=== PATIENT | female | born 1940 | race Caucasian/White ===

== ENCOUNTER 2016-03-28 16:59 | Inpatient (IN) | payer MEDICARE ==
--- NOTE | 2016-03-28 17:47 | DIRPT ---
CLINICAL DATA: 75-year-old female with history of dyspnea and shortness of breath for the past 4 weeks. History of multiple myeloma. EXAM: CHEST 2 VIEW COMPARISON: Chest x-ray 01/23/2016. FINDINGS: Extensive emphysematous changes are again noted throughout the lungs bilaterally. Scattered areas of architectural distortion are noted throughout the lungs bilaterally, presumably areas of chronic post infectious or inflammatory scarring. Increasing nodularity in the left upper lobe. Small left and moderate right pleural effusions. No definite evidence of pulmonary edema. No pneumothorax. Heart size is borderline enlarged. Upper mediastinal contours are within normal limits. Atherosclerosis in the thoracic aorta. IMPRESSION: 1. Increasing nodularity in the left upper lobe. See separate dictation for chest CT from earlier today for full description and follow-up recommendations. 2. Moderate right and small left pleural effusions. 3. Atherosclerosis. Electronically Signed By: Jori Mcgee M.D. On: 03/28/2016 17:44
[2016-03-28 18:05] LABS: AUTOMATED BASOPHIL 1.6 % (0-2); AUTOMATED MONOCYTE 15.8 % (3-10); AUTOMATED NEUTROPHIL 62.6 % (45-76); MPV 9.8 fL (7.4-10.4)
[2016-03-28 18:21] LABS: PARTIAL THROMB. TIME 28.5 SEC (22-35); PT-INR 1.2
[2016-03-28 18:25] LABS: ABG Draw Site Right Radial; ALLEN'S TEST PASS; TCO2 26.3 MMOL/L (23-27)
--- NOTE | 2016-03-28 18:29 | EDPRACDOC ---
- General Information Chief Complaint: Dyspnea/Resp distress Stated Complaint: SENT FROM DR GOMEZ, CHF Time Seen by Provider: 03/28/16 18:11 Information Source: Patient Mode Of Arrival: Car Home Medications: Home Medications Omeprazole [Prilosec] 20 mg PO DAILY 09/02/13 Pravastatin Sodium 10 mg PO DAILY 09/02/13 Cyanocobalamin (Vitamin B-12) [Vitamin B-12] 1,000 mcg PO DAILY 06/09/15 Aspirin (Enteric Coated) [Halfprin] 121.5 mg PO DAILY 07/30/15 Ca/D3/Mag#11/Zinc/Assembly Worker/Ciprinao/Bor [Caltrate 600+D Plus Tablet] 2 tab PO DAILY 07/29 Losartan Potassium 100 mg PO DAILY 07/30/15 Lenalidomide [Revlimid] 5 mg PO DAILY 12/22/15 Acyclovir 400 mg PO DAILY 03/28/16 Allergies/Adverse Reactions: Allergies Allergy/AdvReac Type Severity Reaction Status Date / Time NSAIDS (Non-Steroidal AdvReac Severe See Verified 03/28/16 17:23 Anti-Inflamma Comments - History of Present Illness HPI: PT PRESENTS WITH PROGRESSIVE DYSPNEA OVER THE LAST FEW WEEKS. SEEN BY PCP AND ONCOLOGY WITH CT OF CHEST TODAY WHICH SHOWED NEW BILATERAL PLEURAL EFFUSION AND POSSIBLE CHF. SENT FROM PCP'S OFFICE FOR EVALUATION. Shortness of Breath: Moderate Associated Signs and symptoms: Denies: Cough, Fever, Nasal Symptoms, Vomiting ED Past Medical History - History Reviewed Yes Nurses notes reviewed and agree except as marked - Patient Medical History Cardiac History: Reports: Hypertension, Congestive Heart Failure, Hypercholesterolemia, Valvular Heart Disease Respiratory History: Reports: COPD, Emphysema. Denies: Pneumonia GI/ History: Reports: Renal Disease (HAS MULTIPLE MYELOMA WHICH CAN CAUSE THIS ), Kidney Stones, Gastroesophageal Reflux. Denies: Urinary Tract Infection Musculoskeletal History: Reports: Arthritis (RA), Rheumatoid Arthritis Psychological History: Reports: Anxiety. Denies: Depression, Substance Use Disorder Systemic History: Reports: Cancer (multiple myeloma, lung, skin), Anemia Surgical History: Reports: Other (Left lower lobectomy, right leg surgery) Date of Last Radiation Treatment: 10 YEARS Date of Last Chemotherapy Date: 02/28/16 - Family Medical History Reports: Hypertension, Diabetes (DTR), Cancer (Multiple malignancies in family members including father and multiple sibs). Denies: Stroke, Cardiac Disorders - Social Medical History Smoking Status: Never smoker Social History: Denies: Substance Use Disorder Lives With: Family Lives In: Home EDM Review of Systems - Review of Systems ROS Negative Except as Marked: Yes All systems reviewed and were negative except as marked Constitutional: Fatigue, Weakness. negative: Fever Respiratory: Shortness of Breath Cardiovascular: negative: Chest Pain Gastrointestinal: negative: Pain, Vomiting - Physical Exam Constitutional: Alert Oriented to: Time, Person, Place Last recorded Vital Signs: Last Vital Signs Temp 97.9 F 03/28/16 17:23 Pulse 90 03/28/16 18:11 Resp 18 03/28/16 18:11 BP 191/95 H 03/28/16 18:11 Pulse Ox 89 L 03/28/16 18:11 Oxygen Pulse Oxygen Saturation 89 O2 Device Room Air Oxygen Flow Rate Fraction of Inspired Oxygen ( FIO2) - HEENT Head: negative: Deformity, Laceration Eye Exam: negative: Conjunctival Injection, Pale Conjunctiva Oropharynx: negative: Membranes Dry Nose: negative: Congestion, Discharge Neck: negative: Limited ROM - Respiratory/Cardiovascular Respiratory: Diminished, Tachypnea. negative: Retractions Cardiovascular: negative: Bradycardia, Tachycardia, Irregular - GI Auscultation: Normal Palpation: Normal Tenderness: Non tender - Musculoskeletal Extremities: Pedal Pulse (PALPABLE), Radial Pulse (PALPABLE). negative: Calf Tenderness, Pedal Edema - Integumentary Skin: Warm, Dry. negative: Rash - Neurologic Memory Impaired: Normal Motor Function: Normal Mood Description: Anxious Thought: Coherent Perception: Normal ED SOB MDM - Results Result Diagrams: 03/28/16 17:40 03/28/16 17:40 Results: WBC 3.2 xk/uL (3.8-10.8) L 03/28/16 17:40 RBC 3.20 xM/uL (4.20-5.40) L 03/28/16 17:40 Hgb 10.2 g/dL (12.0-16.0) L 03/28/16 17:40 Hct 29.9 % (36-47) L 03/28/16 17:40 MCV 93 fL (81-99) 03/28/16 17:40 MCH 31.9 pg (27-32) 03/28/16 17:40 MCHC 34.2 g/dl (33-36) 03/28/16 17:40 RDW 20.8 % (11.5-14.5) H 03/28/16 17:40 Plt Count 57 xk/uL (130-400) L 03/28/16 17:40 MPV 9.8 fL (7.4-10.4) 03/28/16 17:40 Neut % (Auto) 62.6 % (45-76) 03/28/16 17:40 Lymph % (Auto) 14.0 % (17-44) L 03/28/16 17:40 Elbert % (Auto) 15.8 % (3-10) H 03/28/16 17:40 Eos % (Auto) 6.0 % (0-5) H 03/28/16 17:40 Baso % (Auto) 1.6 % (0-2) 03/28/16 17:40 Absolute Neuts (auto) 1.98 xk/uL (1.7-8.2) 03/28/16 17:40 Absolute Lymphs (auto) 0.45 xk/uL (0.65-4.75) L 03/28/16 17:40 Lactic Acid 1.0 mEq/L (0.7-2.1) 03/28/16 17:40 Lab Results 03/28/16 03/28/16 17:40 17:40 WBC 3.2 L RBC 3.20 L Hgb 10.2 L Hct 29.9 L MCV 93 MCH 31.9 MCHC 34.2 RDW 20.8 H Plt Count 57 L MPV 9.8 Neut % (Auto) 62.6 Lymph % (Auto) 14.0 L Elbert % (Auto) 15.8 H Eos % (Auto) 6.0 H Baso % (Auto) 1.6 Absolute Neuts (auto) 1.98 Absolute Lymphs (auto) 0.45 L Lactic Acid 1.0 - EKG EKG #1 EKG Time: 18:00 -: Yes EKG interpreted by me Rate: bpm: 86 Rhythm: NSR, PVCs ST: Nonsp - Departure Yes I personally saw and evaluated the patient. Condition: Stable Final Diagnosis: Hypoxemia requiring supplemental oxygen, Pancytopenia Referrals: Sahil Gomez MD [Primary Care Provider] - One Week
[2016-03-28 19:31] LABS: WBC/URINE TNTC (0-5)
[2016-03-28 19:32] LABS: BLOOD UREA NITROGEN 23 MG/DL (7-17); CALC CORRECTED 8.7 MG/DL (8.4-10.2); CALCIUM 7.7 MG/DL (8.4-10.2); CALCULATED OSMOLALITY 275 MOs/Kg (270-290); CHLORIDE 105 mEq/L (98-107); CPK TOTAL WITH POSSIBLE MB 53 IU/L (30-134); GLUCOSE 100 MG/DL (70-99); SODIUM LEVEL 141 mEq/L (137-146); TOTAL PROTEIN 5.7 G/DL (6.3-8.2)
[2016-03-28 19:37] LABS: LEUKOCYTES/URINE TRACE (NEGATIVE); NITRITE/URINE NEG (NEGATIVE); URINE OCCULT BLOOD 2+ (NEG/TRACE)
[2016-03-28] MEDS ORDERED: CEFTRIAXONE 1 GM in D5W 100 ML IV ONE (19:46)
[2016-03-28] MEDS ORDERED: ONDANSETRON HCL 4 MG/2 ML VIAL IV PRN (20:37)
[2016-03-28] MEDS ORDERED: METOCLOPRAMIDE 10 MG/2 ML VIAL IV PRN (20:37)
[2016-03-28] MEDS ORDERED: SIMETHICONE 80 MG TAB PO PRN (20:37)
[2016-03-28] MEDS ORDERED: BENZONATATE 100 MG PERLES PO PRN (20:37)
[2016-03-28] MEDS ORDERED: ACETAMINOPHEN 650 MG SUPP PR PRN (20:37)
[2016-03-28] MEDS ORDERED: MORPHINE 2 MG/ML INJECTION IV PRN (20:37)
[2016-03-28] MEDS ORDERED: DOCUSATE-SENNA CONCENTRATE TAB PO PRN (20:37)
[2016-03-28] MEDS ORDERED: NITROGLYCERINE 0.4 MG TAB SL PRN (20:37)
[2016-03-28] MEDS ORDERED: Pharmacy Order Set Alert SCH (21:00)
[2016-03-28] MEDS ORDERED: METOPROLOL 5 MG/5 ML SDV IV ONE (21:12)
[2016-03-28] MEDS: FUROSEMIDE 40 MG/4 ML VIAL IV SCH (22:44)
[2016-03-28] MEDS ORDERED: ENOXAPARIN 40 MG/0.4 ML PFS SQ SCH (23:00)
[2016-03-28] MEDS ORDERED: Vaccine Screening Complete SCH (23:00)
--- NOTE | 2016-03-28 23:52 | HISTPHYS ---
- Chief Complaint SHORT OF BREATH - History of Present Illness Renea Shultz is a pleasant elderly woman who suffers with Stage 2 [place] light chain multiple myeloma. She noted that she had increasing shortness of breath and tightness in her chest the past 3-4 days, and complained of increasing cough , nausea, and chest congestion. She saw Dr. Ibarra who felt she needed to be admitted due to her declining condition. She has small bilateral pleural effusions, worsening signs of congestive heart failure, and a urinary tract infection. - Medical History Cardiac History: Reports: Coronary Artery Disease, Hypertension, Congestive Heart Failure, Hypercholesterolemia, Valvular Heart Disease Respiratory History: Reports: COPD, Emphysema. Denies: Pneumonia GI/ History: Reports: Renal Disease (HAS MULTIPLE MYELOMA WHICH CAN CAUSE THIS ), Kidney Stones, Gastroesophageal Reflux. Denies: Urinary Tract Infection Musculoskeletal History: Reports: Arthritis (osteoporosis), Rheumatoid Arthritis Systemic History: Reports: Cancer (multiple myeloma, lung ca(resected), L breast , skin ca), Anemia Neurological History: Reports: No Significant History Psychological History: Reports: Anxiety. Denies: Depression, Alcoholism - Surgical History Reports: Other (L lower lobectomy, R leg surgery(rut inserted), lithotripsy,L Breast lump) - Medictions/Allergies Allergies NSAIDS (Non-Steroidal Anti-Inflamma Adverse Reaction (Severe, Verified 03/28/16 17:23) See Comments Renal failure Home Medications Omeprazole [Prilosec] 20 mg PO DAILY 09/02/13 Pravastatin Sodium 10 mg PO DAILY 09/02/13 Cyanocobalamin (Vitamin B-12) [Vitamin B-12] 1,000 mcg PO DAILY 06/09/15 Aspirin (Enteric Coated) [Halfprin] 121.5 mg PO DAILY 07/30/15 Ca/D3/Mag#11/Zinc/Transit Bus Operator/Cipriano/Bor [Caltrate 600+D Plus Tablet] 2 tab PO DAILY 07/29 Losartan Potassium 100 mg PO DAILY 07/30/15 Lenalidomide [Revlimid] 5 mg PO DAILY 12/22/15 Acyclovir 400 mg PO DAILY 03/28/16 - Family History Reports: Hypertension, Diabetes (DTR), Cancer (Multiple malignancies in family members including father and multiple sibs). Denies: Stroke, Cardiac Disorders - Social History Travel Outside of [place] in the Last 3 Months?: No Smoking Status: Former smoker - Review of Systems Constitutional: Chills, Fatigue, Loss of Appetite, Weakness Eyes: Uses Glasses/Contact lenses Ears: No Symptoms Reported, Hearing Loss Nose: No Symptoms Reported. negative: Bleeding, Congestion, Discharge, Deformity Mouth: No Symptoms Reported Throat/Neck: No Symptoms Reported Respiratory: Cough, Shortness of Breath, Wheezing, Bronchitis, Dyspnea Cardiovascular: Chest Pain, Edema, Orthopnea, Palpitations, PND Gastrointestinal: Nausea, Vomiting, Heartburn Genitourinary: Dysuria, Frequency, Nocturia, Urgency to urinate, Foul Ordor, Postmenopause Neurological: Dizziness, Gait Difficulty, Headache, Weakness Musculoskeletal:: Osteoarthritis, Stiffness, Weakness, Other (osteoporosis) Integumentary: No Symptoms Reported Allergic/Immunologic: No Symptoms Reported Hematologic: Easy Bruising, Anemia Endocrine: No Symptoms Reported, Osteopenia, Osteoporosis Psychiatric: Anxiety - Physical Exam Vital Signs: Initial Vitals Temperature 97.9 F 03/28/16 17:23 Pulse Rate 83 03/28/16 17:23 Respiratory Rate 24 03/28/16 17:23 Blood Pressure 196/77 H 03/28/16 17:23 Pulse Oxygen Saturation 93 03/28/16 17:23 Selected Entries 03/28/16 03/28/16 17:23 18:11 Temperature 97.9 F Pulse Rate 83 90 Respiratory 24 18 Rate Blood Pressure 116 Mean Blood Pressure 196/77 H 191/95 H Pulse Oxygen 93 89 L Saturation O2 Device Room Air Selected Entries 03/28/16 19:12 Pulse Rate 88 Respiratory 20 Rate Blood Pressure 210/91 H Pulse Oxygen 92 Saturation Oxygen Flow 2 Rate VS Activity (if At Rest on O2 Applicable) Constitutional: Alert, Well nourished, Well appearing Oriented to: Time, Person, Place - HEENT Head: Normal Eye: Normal (PERRL:EOMI) Oropharynx: Normal. negative: Exudate, Red, Tonsillar Hypertrophy Tympanic Membrane: Dull ENT EAC: Normal Nose: No Symptoms Reported. negative: Bleeding, Congestion, Discharge, Deformity Respiratory: Diminished, Rales, Tachypnea. negative: Wheezes Cardiovascular: Bradycardia (regular rhythm and rate, no S3 or S4, no murmur, no JVD or bruit) - GI Auscultation: Normal Palpation: Normal (soft, nondistended, no palpable mass). negative: Enlarged liver, Enlarged spleen Tenderness: Non tender Chang's Sign: Negative Rectal Exam: Deferred - Musculoskeletal Back: Normal Extremities: Pedal Edema, Pedal Pulse (normal), Radial Pulse (normal) Spine: non-tender, normal alignment, normal inspection - Integumentary Skin: Warm, Dry Lymphatics: Normal - Neurologic Memory Impaired: Normal Motor Function: Normal Cranial Nerve: Normal Cerebellar: Normal Mood Description: Normal Thought: Coherent Perception: Normal - Focused CV Perfusion Exam Vital Signs: Last Vital Signs Temp 98.0 F 03/28/16 22:12 Pulse 80 03/28/16 22:12 Resp 28 H 03/28/16 22:12 BP 172/74 03/28/16 22:51 Pulse Ox 93 03/28/16 22:12 - Lab Results Laboratory Tests 03/28/16 03/28/16 03/28/16 17:40 17:40 17:40 WBC 3.2 L Hgb 10.2 L Hct 29.9 L Plt Count 57 L Neut % (Auto) 62.6 Lymph % (Auto) 14.0 L Canadian % (Auto) 15.8 H Eos % (Auto) 6.0 H PT INR APTT Puncture Site pH pCO2 pO2 HCO3 Total CO2 Base Excess FiO2 % Sodium 141 Potassium 3.0 L Chloride 105 Carbon Dioxide 26 Anion Gap 13 BUN 23 H Creatinine 1.20 H Estimated GFR (MDRD) 44 L Glucose 100 H Calculated Osmolality 275 Lactic Acid 1.0 Calcium 7.7 L Corrected Calcium 8.7 Total Bilirubin 1.9 H AST 17 ALT 28 Alkaline Phosphatase 83 Creatine Kinase 53 Troponin I 0.10 [id number]-[id number] Pept 7890 H Total Protein 5.7 L Albumin 3.0 L Lipase 68 Urine Color Urine Clarity Urine pH Ur Specific Ozan Urine Protein Urine Glucose (UA) Urine Ketones Urine Occult Blood Urine Nitrite Urine RBC Urine WBC Urine WBC Clumps Ur Epithelial Cells Urine Bacteria 03/28/16 03/28/16 03/28/16 17:40 18:20 18:30 WBC Hgb Hct Plt Count Neut % (Auto) Lymph % (Auto) Canadian % (Auto) Eos % (Auto) PT 12.8 H INR 1.2 APTT 28.5 Puncture Site Right radial pH 7.520 H pCO2 31.0 L pO2 62.0 L HCO3 25.3 Total CO2 26.3 Base Excess 3.0 H FiO2 % 21% Sodium Potassium Chloride Carbon Dioxide Anion Gap BUN Creatinine Estimated GFR (MDRD) Glucose Calculated Osmolality Lactic Acid Calcium Corrected Calcium Total Bilirubin AST ALT Alkaline Phosphatase Creatine Kinase Troponin I [id number]-Zlmhqqmozbg Pept Total Protein Albumin Lipase Urine Color Yellow Urine Clarity Sl hzy Urine pH 5.0 Ur Specific Ozan 1.015 Urine Protein 1+ H Urine Glucose (UA) Neg Urine Ketones Neg Urine Occult Blood 2+ H Urine Nitrite Neg Urine RBC 10-20 H Urine WBC Tntc H Urine WBC Clumps Present H Ur Epithelial Cells 1+ Urine Bacteria 1+ H 03/28/16 20:31 WBC Hgb Hct Plt Count Neut % (Auto) Lymph % (Auto) Canadian % (Auto) Eos % (Auto) PT INR APTT Puncture Site pH pCO2 pO2 HCO3 Total CO2 Base Excess FiO2 % Sodium Potassium Chloride Carbon Dioxide Anion Gap BUN Creatinine Estimated GFR (MDRD) Glucose Calculated Osmolality Lactic Acid Calcium Corrected Calcium Total Bilirubin AST ALT Alkaline Phosphatase Creatine Kinase Troponin I 0.10 Mso-R-Fnexvzphvgl Pept Total Protein Albumin Lipase Urine Color Urine Clarity Urine pH Ur Specific Ozan Urine Protein Urine Glucose (UA) Urine Ketones Urine Occult Blood Urine Nitrite Urine RBC Urine WBC Urine WBC Clumps Ur Epithelial Cells Urine Bacteria - Diagnostic Findings CXR: IMPRESSION: 1. Increasing nodularity in the left upper lobe. See separate dictation for chest CT from earlier today for full description and follow-up recommendations. 2. Moderate right and small left pleural effusions. 3. Atherosclerosis. Electronically Signed By: Jori Mcgee M.D. On: 03/28/2016 17:44 CT Chest: IMPRESSION: 1. No evidence of acute pulmonary embolism. 2. New mild cardiomegaly. New interlobular septal thickening throughout both lungs. New small layering right pleural effusion and increased small left pleural effusion. These findings are most suggestive of congestive heart failure. 3. New mild pericardial fluid/thickening. 4. Mild patchy ground-glass opacity and consolidation in the mid to lower left lung, significantly decreased since 12/23/2015, which is nonspecific and could represent atelectasis, with mild infection or aspiration not excluded. 5. New nonspecific subpleural focus of consolidation in the anterior left upper lobe, for which a follow-up chest CT is advised in 3 months. 6. Mild left hilar lymphadenopathy, nonspecific. This can also be reassessed on follow-up chest CT with IV contrast in 3 months. 7. Extensive coronary atherosclerosis. These results were called by telephone at the time of interpretation on 03/28/2016 at 12:[address] PAZ, who verbally acknowledged these results. Electronically Signed By: Michele Flores M.D. On: 03/28/2016 12:51 - Assessment (1) Left lower lobe pneumonia J18.9 - PNEUMONIA, UNSPECIFIED ORGANISM Acute Present on Admission: Yes Qualifiers: Pneumonia type: due to unspecified organism Aspiration pneumonia type: A Admit: patient has infiltrates in MAHI and LLL of lung by CT scan. 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 We will obtain blood and sputum cultures and start broad spectrum antibiotics. (2) Diastolic CHF, acute I50.31 - ACUTE DIASTOLIC (CONGESTIVE) HEART FAILURE Acute Present on Admission: Yes Need to be conservative with fluids; monitor I&O carefully. Follow NT-pro BNP and renal function, also repeat CXR will help determine if patient is improving with treatment or not. (3) Hypoxemia requiring supplemental oxygen R09.02 - HYPOXEMIA; Z99.81 - DEPENDENCE ON SUPPLEMENTAL OXYGEN Acute Present on Admission: Yes (Provide supplemental oxygen) Patient appears to be in early CHF. Provide supplemental oxygen, maintain O2 sat of 92% or more. Patient has significant atelectasis and small bilateral pleural effusions. (4) Acute kidney injury N17.9 - ACUTE KIDNEY FAILURE, UNSPECIFIED Acute Present on Admission: Yes Keep patient well hydrated, avoid nephrotoxic medications, monitor renal function closely. (5) UTI (urinary tract infection) N39.0 - URINARY TRACT INFECTION, SITE NOT SPECIFIED Acute Qualifiers: Urinary tract infection type: acute cystitis Hematuria presence: without hematuria Indwelling urinary catheter type: I Encounter type: E Qualified Code(s): N30.00 - Acute cystitis without hematuria Urine cultured, will begin IV antibiotic and await results. (6) Anemia of chronic disease D63.8 - ANEMIA IN OTHER CHRONIC DISEASES CLASSIFIED ELSEWHERE Chronic Present on Admission: Yes Monitor H/H and transfuse if needed/indicated. (7) Pancytopenia D61.818 - OTHER PANCYTOPENIA Chronic Present on Admission: Yes monitor blood counts for potential problems with anemia, bleeding diathesis. (8) Multiple myeloma C90.00 - MULTIPLE MYELOMA NOT HAVING ACHIEVED REMISSION Chronic Qualifiers: Multiple myeloma remission status: not in remission Qualified Code(s): C90.00 - Multiple myeloma not having achieved remission Followed by Dr. Paz - Plan Due to the presence of and/or the risk of deterioration, my attendance to this patient required critical care time, including assessment/reassessment, documentation, ordering and interpreting ancillary studies, discussion with staff and consultants,patient and family, and excludes time spent on separately billable procedures. In summary, this patient is acutely and critically ill. The patient requires treatment of vital organ failure and measures to prevent further life-threatening deterioration of condition. Case Care Discussed with: Patient, Nursing Staff Total Time: 75 min Critical Care: Yes Code: 291
[2016-03-28] MEDS ORDERED: ENALAPRILAT 1.25 MG/ML VIAL IV PRN (23:59)
[2016-03-28] MEDS ORDERED: METOPROLOL 5 MG/5 ML SDV IV PRN (23:59)
[2016-03-29] MEDS ORDERED: METOPROLOL 5 MG/5 ML SDV IV PRN (00:03)
[2016-03-29] MEDS: NITROGLYCERINE 2 % OINTMENT PACK TOP SCH ×4 (00:23→18:10)
[2016-03-29] MEDS: ACETAMINOPHEN 325 MG/TAB TABLET PO PRN (03:22)
[2016-03-29] MEDS ORDERED: AZITHROMYCIN 500 MG in D5W 250 ML IV SCH (05:00)
[2016-03-29] MEDS: FUROSEMIDE 40 MG/4 ML VIAL IV SCH ×3 (05:28→21:25)
[2016-03-29 05:47] LABS: MPV 9.5 fL (7.4-10.4)
[2016-03-29 06:51] LABS: BLOOD UREA NITROGEN 22 MG/DL (7-17); CALCULATED OSMOLALITY 271 MOs/Kg (270-290); CHLORIDE 104 mEq/L (98-107); GLUCOSE 86 MG/DL (70-99); SODIUM LEVEL 140 mEq/L (137-146)
[2016-03-29 06:58] LABS: CALCIUM 6.7 MG/DL (8.4-10.2)
[2016-03-29] MEDS ORDERED: POTASSIUM CHLORIDE 20 MEQ TAB PO SCH (08:00)
[2016-03-29] MEDS: Magnesium Sulfate 2 gm/D5W 2 GM/50 ML RTU IV SCH ×2 (08:57→11:34)
[2016-03-29] MEDS: KCL 20 mEq/100 ml Premix Run 20 MEQ/100 ML RTU IV SCH ×2 (08:57→11:35)
[2016-03-29] MEDS ORDERED: Non-Formulary Medication ITEM (Losartan Potassium [Losartan Potassium] 100 MG) PO SCH (09:00)
[2016-03-29] MEDS ORDERED: Non-Formulary Medication ITEM (Pravastatin Sodium [Pravastatin Sodium] 10 MG) PO SCH (09:00)
[2016-03-29] MEDS ORDERED: Non-Formulary Medication ITEM (Cyanocobalamin (Vitamin B-12) [Vitamin B-12] 1,000 MCG) PO SCH (09:00)
[2016-03-29] MEDS ORDERED: LENALIDOMIDE 5 MG PO SCH (09:00)
[2016-03-29] MEDS ORDERED: Non-Formulary Medication ITEM (Ca/D3/Mag#11/Zinc/Cop/Mang/Bor [Caltrate 600+D Plus Table PO SCH (09:00)
[2016-03-29] MEDS ORDERED: ACYCLOVIR 400 MG PO SCH (09:00)
[2016-03-29 09:04] LABS: CALC CORRECTED 8.5 MG/DL (8.4-10.2)
[2016-03-29] MEDS: POTASSIUM CHLORIDE 20 MEQ TAB PO SCH ×3 (09:28→18:09)
[2016-03-29] MEDS: CARVEDILOL 3.125 MG TAB PO SCH ×2 (09:30→21:24)
[2016-03-29] MEDS: LOSARTAN POTASSIUM 50 MG TAB PO SCH (09:30)
[2016-03-29] MEDS: MAGNESIUM OXIDE 400 MG TAB PO SCH ×3 (09:31→18:09)
[2016-03-29] MEDS: LISINOPRIL 2.5 MG TAB PO SCH (09:32)
[2016-03-29] MEDS: ACYCLOVIR 200 MG CAP PO SCH (09:32)
[2016-03-29] MEDS ORDERED: METOCLOPRAMIDE 10 MG/2 ML VIAL IV PRN (11:44)
[2016-03-29] MEDS: PROBIOTIC BLEND TAB PO SCH ×2 (12:21→18:09)
[2016-03-29] MEDS: CALCIUM CARBONATE + VITAMIN D 500 MG TAB PO SCH (12:22)
[2016-03-29] MEDS: CYANOCOBALAMIN (Vitamin B-12) 500 MCG TABLET PO SCH (12:23)
[2016-03-29 12:26] VITALS: BMI 19.0
--- NOTE | 2016-03-29 15:45 | CAPUEKG ---
[place] Test Date: 2016-03-29 Pat Name: LOLLY OJEDA Department: Room: 444 Gender: Female Shop Lead: LOREN ARREDONODB: Requested By: Order Number: Reading MD: Jerry Hunltey MD Measurements Intervals Manley Rate: 63 P: 52 NE: 136 QRS: 97 QRSD: 70 T: 125 QT: 462 QTc: 472 Interpretive Statements Sinus rhythm with APC Rightward axis Nonspecific T wave abnormality U waves, consider hypokalemia Prolonged QT Abnormal ECG Electronically Signed On 03-29-16 15:45:14 EST by Jerry Huntley MD <[email or web address]> [id number]
--- NOTE | 2016-03-29 17:28 | GENMEDPROG ---
Subjective Note: Patient feeling significantly better this morning she has no complaints. She states she has never seen a network consultant. Notes Reviewed: Yes Events from last night noted and discussed with Clinical Staff Current Medication List: Reviewed Currently: Reports: AMANDA HOROWITZ DVT Prophylaxis: Yes - Physical Examination Vital Signs and I&O: Last Vital Signs Temp 97.5 F 03/29/16 16:00 Pulse 85 03/29/16 16:00 Resp 18 03/29/16 16:00 BP 154/78 03/29/16 16:00 Pulse Ox 97 03/29/16 16:00 Oxygen Pulse Oxygen Saturation 97 O2 Device Nasal Cannula Oxygen Flow Rate 2 Fraction of Inspired Oxygen ( FIO2) Intake & Output 03/26/16 03/27/16 03/28/16 03/29/16 23:59 23:59 23:59 23:59 Intake Total 100 1057 Output Total 3475 Balance 100 -2418 Patient's weight 51.71 kg 51.88 kg General: Alert, Oriented x3, Cooperative HEENT: Normal Neck: Non-tender, Full range of motion, Normal Trachea alignment, Normal inspection (No cervical lymphadenopathy. No supraclavicular lymphadenopathy.), No Masses palpable, Supple Lymphatics: Normal Respiratory: Diminished, Rales, Tachypnea. negative: Wheezes Cardiovascular: Regular rate and rhythm (No bradycardia or tachycardia), Normal S1, No Gallops,Rubs/Murmurs, Normal S2, Good Pedal Pulses (DP pulses 2+ bilaterally) GI: Normal bowel sounds (normal active sounds), Soft (non-distended), Non tender , No hepatospenomegaly, No masses Extremities/Musculoskeletal: Normal pulses (DP pulses 2+ bilaterally) Skin: Warm,Dry and Intact, No rashes, No significant lesion Neurological: Strength at 5/5 X4 ext (Motor 5/5 throughout.), Normal tone, Cranial nerves 3-12 NL ( 2-12 grossly intact.) Psych/Mental Status: Appropriate, Normal Affect Lab/DI/Studies Reviewed: Laboratory Results - last 24 hr 03/28/16 03/28/16 03/28/16 17:40 17:40 17:40 WBC 3.2 L RBC 3.20 L Hgb 10.2 L Hct 29.9 L MCV 93 MCH 31.9 MCHC 34.2 RDW 20.8 H Plt Count 57 L MPV 9.8 Neut % (Auto) 62.6 Lymph % (Auto) 14.0 L [place] % (Auto) 15.8 H Eos % (Auto) 6.0 H Baso % (Auto) 1.6 Absolute Neuts (auto) 1.98 Absolute Lymphs (auto) 0.45 L PT INR APTT Puncture Site pH pCO2 pO2 HCO3 Total CO2 Base Excess FiO2 % Specimen Drawn By Sodium 141 Potassium 3.0 L Chloride 105 Carbon Dioxide 26 Anion Gap 13 BUN 23 H Creatinine 1.20 H Estimated GFR (MDRD) 44 L Glucose 100 H Calculated Osmolality 275 Lactic Acid 1.0 Calcium 7.7 L Corrected Calcium 8.7 Magnesium Total Bilirubin 1.9 H AST 17 ALT 28 Alkaline Phosphatase 83 Creatine Kinase 53 Troponin I 0.10 Mhk-G-Ompzcdejqgg Pept 7890 H Total Protein 5.7 L Albumin 3.0 L Triglycerides Cholesterol LDL Cholesterol, Calc VLDL Cholesterol, Calc HDL Cholesterol Cholesterol/HDL Ratio Lipase 68 Urine Color Urine Clarity Urine pH Ur Specific [place] Urine Protein Urine Glucose (UA) Urine Ketones Urine Occult Blood Urine Nitrite Urine Bilirubin Urine Urobilinogen Ur Leukocyte Esterase Urine RBC Urine WBC Urine WBC Clumps Ur Epithelial Cells Urine Bacteria Urine Mucus Blood Type Antibody Screen 03/28/16 03/28/16 03/28/16 17:40 18:20 18:30 WBC RBC Hgb Hct MCV MCH MCHC RDW Plt Count MPV Neut % (Auto) Lymph % (Auto) [place] % (Auto) Eos % (Auto) Baso % (Auto) Absolute Neuts (auto) Absolute Lymphs (auto) PT 12.8 H INR 1.2 APTT 28.5 Puncture Site Right radial pH 7.520 H pCO2 31.0 L pO2 62.0 L HCO3 25.3 Total CO2 26.3 Base Excess 3.0 H FiO2 % 21% Specimen Drawn By Roude Sodium Potassium Chloride Carbon Dioxide Anion Gap BUN Creatinine Estimated GFR (MDRD) Glucose Calculated Osmolality Lactic Acid Calcium Corrected Calcium Magnesium Total Bilirubin AST ALT Alkaline Phosphatase Creatine Kinase Troponin I Oez-G-Yjxvgbhhyii Pept Total Protein Albumin Triglycerides Cholesterol LDL Cholesterol, Calc VLDL Cholesterol, Calc HDL Cholesterol Cholesterol/HDL Ratio Lipase Urine Color Yellow Urine Clarity Sl hzy Urine pH 5.0 Ur Specific [place] 1.015 Urine Protein 1+ H Urine Glucose (UA) Neg Urine Ketones Neg Urine Occult Blood 2+ H Urine Nitrite Neg Urine Bilirubin Neg Urine Urobilinogen 0.2 Ur Leukocyte Esterase Trace Urine RBC 10-20 H Urine WBC Tntc H Urine WBC Clumps Present H Ur Epithelial Cells 1+ Urine Bacteria 1+ H Urine Mucus Occ Blood Type Antibody Screen 03/28/16 03/29/16 03/29/16 20:31 05:00 05:00 WBC 2.2 L RBC 2.68 L Hgb 8.5 L D Hct 24.9 L MCV 93 MCH 31.7 MCHC 34.1 RDW 21.5 H Plt Count 45 L* MPV 9.5 Neut % (Auto) Lymph % (Auto) [place] % (Auto) Eos % (Auto) Baso % (Auto) Absolute Neuts (auto) Absolute Lymphs (auto) PT INR APTT Puncture Site pH pCO2 pO2 HCO3 Total CO2 Base Excess FiO2 % Specimen Drawn By Sodium 140 Potassium 2.4 L* Chloride 104 Carbon Dioxide 28 Anion Gap 10 BUN 22 H Creatinine 1.20 H Estimated GFR (MDRD) 44 L Glucose 86 Calculated Osmolality 271 Lactic Acid Calcium 6.7 L* Corrected Calcium 8.5 Magnesium 0.70 L Total Bilirubin AST ALT Alkaline Phosphatase Creatine Kinase Troponin I 0.10 Dia-E-Czasmpvlxif Pept Total Protein Albumin 2.2 L Triglycerides 85 Cholesterol 87 L LDL Cholesterol, Calc 36.0 VLDL Cholesterol, Calc 17.0 HDL Cholesterol 34.0 L Cholesterol/HDL Ratio 2.6 Lipase Urine Color Urine Clarity Urine pH Ur Specific [place] Urine Protein Urine Glucose (UA) Urine Ketones Urine Occult Blood Urine Nitrite Urine Bilirubin Urine Urobilinogen Ur Leukocyte Esterase Urine RBC Urine WBC Urine WBC Clumps Ur Epithelial Cells Urine Bacteria Urine Mucus Blood Type Antibody Screen 03/29/16 03/29/16 08:49 09:50 WBC RBC Hgb 9.7 L D Hct 28.4 L MCV MCH MCHC RDW Plt Count MPV Neut % (Auto) Lymph % (Auto) [place] % (Auto) Eos % (Auto) Baso % (Auto) Absolute Neuts (auto) Absolute Lymphs (auto) PT INR APTT Puncture Site pH pCO2 pO2 HCO3 Total CO2 Base Excess FiO2 % Specimen Drawn By Sodium Potassium Chloride Carbon Dioxide Anion Gap BUN Creatinine Estimated GFR (MDRD) Glucose Calculated Osmolality Lactic Acid Calcium Corrected Calcium Magnesium Total Bilirubin AST ALT Alkaline Phosphatase Creatine Kinase Troponin I Dlr-F-Bnjvijagdvi Pept Total Protein Albumin Triglycerides Cholesterol LDL Cholesterol, Calc VLDL Cholesterol, Calc HDL Cholesterol Cholesterol/HDL Ratio Lipase Urine Color Urine Clarity Urine pH Ur Specific [place] Urine Protein Urine Glucose (UA) Urine Ketones Urine Occult Blood Urine Nitrite Urine Bilirubin Urine Urobilinogen Ur Leukocyte Esterase Urine RBC Urine WBC Urine WBC Clumps Ur Epithelial Cells Urine Bacteria Urine Mucus Blood Type O POSITIVE Antibody Screen Negative - Assessment (1) Diastolic CHF, acute Acute I50.31 - ACUTE DIASTOLIC (CONGESTIVE) HEART FAILURE Comment/Plan: Responding to therapy fairly well. Echocardiogram is pending. Cardiology consult pending results of echocardiogram. (2) Hypoxemia requiring supplemental oxygen Acute R09.02 - HYPOXEMIA; Z99.81 - DEPENDENCE ON SUPPLEMENTAL OXYGEN Comment /Plan: Provide supplemental oxygen, maintain O2 sat of 92% or more. Patient has significant atelectasis and small bilateral pleural effusions. Continue present care recheck chest x-ray in a.m.. (3) Acute kidney injury Acute N17.9 - ACUTE KIDNEY FAILURE, UNSPECIFIED (4) UTI (urinary tract infection) Acute N39.0 - URINARY TRACT INFECTION, SITE NOT SPECIFIED Qualifiers: Urinary tract infection type: acute cystitis Hematuria presence: without hematuria Indwelling urinary catheter type: I Encounter type: E Qualified Code(s): N30.00 - Acute cystitis without hematuria Comment/Plan: Urine cultured, will begin IV antibiotic and await results. (5) Anemia of chronic disease Chronic D63.8 - ANEMIA IN OTHER CHRONIC DISEASES CLASSIFIED ELSEWHERE Comment/Plan: Monitor H/H and transfuse if needed/indicated. (6) Pancytopenia Chronic D61.818 - OTHER PANCYTOPENIA Comment/Plan: monitor blood counts for potential problems with anemia, bleeding diathesis. (7) Left lower lobe pneumonia Ruled-out J18.9 - PNEUMONIA, UNSPECIFIED ORGANISM Qualifiers: Pneumonia type: due to unspecified organism Aspiration pneumonia type: A Qualified Code(s): J18.1 - Lobar pneumonia, unspecified organism Comment/Plan: Admit: patient has infiltrates in MAHI and LLL of lung by CT scan. 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 We will obtain blood and sputum cultures and start broad spectrum antibiotics. (8) Multiple myeloma Chronic C90.00 - MULTIPLE MYELOMA NOT HAVING ACHIEVED REMISSION Qualifiers: Multiple myeloma remission status: not in remission Qualified Code(s): C90.00 - Multiple myeloma not having achieved remission Comment/Plan: Followed by Dr. Paz
[2016-03-29] MEDS: CEFTRIAXONE 1 GM in D5W 100 ML IV SCH (19:50)
[2016-03-29] MEDS ORDERED: DEXAMETHASONE 4 MG TAB PO SCH ×2 (21:00)
[2016-03-29] MEDS: PRAVASTATIN 20 MG TAB PO SCH (21:24)
[2016-03-30] MEDS: NITROGLYCERINE 2 % OINTMENT PACK TOP SCH ×4 (01:31→17:59)
[2016-03-30] MEDS ORDERED: DEXAMETHASONE 4 MG TAB PO SCH (02:00)
[2016-03-30] MEDS: FUROSEMIDE 40 MG/4 ML VIAL IV SCH ×3 (05:45→20:12)
[2016-03-30 07:26] LABS: MPV 9.8 fL (7.4-10.4)
[2016-03-30 07:41] LABS: BLOOD UREA NITROGEN 24 MG/DL (7-17); CALCULATED OSMOLALITY 271 MOs/Kg (270-290); CHLORIDE 102 mEq/L (98-107); GLUCOSE 122 MG/DL (70-99); SODIUM LEVEL 138 mEq/L (137-146)
[2016-03-30] MEDS: MAGNESIUM OXIDE 400 MG TAB PO SCH ×3 (07:41→17:59)
[2016-03-30] MEDS: POTASSIUM CHLORIDE 20 MEQ TAB PO SCH ×3 (07:43→17:59)
[2016-03-30] MEDS: LISINOPRIL 2.5 MG TAB PO SCH (07:43)
[2016-03-30] MEDS: ACYCLOVIR 200 MG CAP PO SCH (07:43)
[2016-03-30] MEDS: CARVEDILOL 3.125 MG TAB PO SCH ×2 (07:43→20:11)
[2016-03-30] MEDS: LENALIDOMIDE 5 MG PO SCH (07:44)
[2016-03-30] MEDS: LOSARTAN POTASSIUM 50 MG TAB PO SCH (07:44)
--- NOTE | 2016-03-30 08:24 | DIRPT ---
CLINICAL DATA: Heart failure. EXAM: PORTABLE CHEST 1 VIEW COMPARISON: 03/28/2016 . FINDINGS: Mediastinum and hilar structures normal. Heart size normal. Stable mild cardiomegaly. Mild pulmonary vascular prominence. Multifocal bilateral pulmonary infiltrates consistent with multifocal pulmonary edema and/or bilateral pneumonia. Small bilateral pleural effusions. Findings progressed from prior exam. No pneumothorax . IMPRESSION: Stable cardiomegaly with mild pulmonary vascular prominence. Multifocal bilateral pulmonary infiltrates consistent with multifocal pulmonary edema and/or pneumonia. Small bilateral pleural effusions. Findings progressed from prior study. Electronically Signed By: Cyril Knox On: 03/30/2016 08:21
[2016-03-30 09:07] LABS: SEG NEUTROPHIL 66 % (45-76)
--- NOTE | 2016-03-30 12:43 | PCM.CARDCO ---
Consultation Date: 03/30/16 Requesting Physician: Christy Pak Global Account Director: Jerry Huntley Consult Reason: CHF - History of Present Illness 75-year-old woman with myeloma presenting with decompensated heart failure. She developed severe progressive shortness of breath at rest is responded nicely to diuresis clear peripheral edema and is no longer short of breath on oxygen at bed rest. She has had no chest pain palpitation or syncope. Unfortunately she has been adding salt to her diet. Recently she require transfusion for severe anemia. Chief Complaint: SHORT OF BREATH - Past Medical and Surgical History Cardiac History: Reports: No Significant History, Coronary Artery Disease, Hypertension, Congestive Heart Failure, Hypercholesterolemia, Valvular Heart Disease Respiratory History: Reports: No Significant History, COPD, Emphysema. Denies: Pneumonia GI/ History: Reports: No Significant History, Renal Disease (HAS MULTIPLE MYELOMA WHICH CAN CAUSE THIS), Kidney Stones, Gastroesophageal Reflux. Denies: Urinary Tract Infection Systemic History: Reports: No Significant History, Cancer (multiple myeloma, lung ca(resected), L breast, skin ca), Anemia Musculoskeletal History: Reports: No Significant History, Arthritis ( osteoporosis), Rheumatoid Arthritis Psychological History: Reports: No Significant History, Anxiety. Denies: Depression, Alcoholism, Substance Use Disorder Neurological History: Reports: No Significant History Past Surgical History: Reports: No Significant History, Other (L lower lobectomy , R leg surgery(rut inserted), lithotripsy,L Breast lump) Allergies NSAIDS (Non-Steroidal Anti-Inflamma Adverse Reaction (Severe, Verified 03/28/16 17:23) See Comments Renal failure Home Medications Omeprazole [Prilosec] 20 mg PO DAILY 09/02/13 Pravastatin Sodium 10 mg PO DAILY 09/02/13 Cyanocobalamin (Vitamin B-12) [Vitamin B-12] 1,000 mcg PO DAILY 06/09/15 Aspirin (Enteric Coated) [Halfprin] 121.5 mg PO DAILY 07/30/15 Ca/D3/Mag#11/Zinc/Energy Conservation Director/Cipriano/Bor [Caltrate 600+D Plus Tablet] 2 tab PO DAILY 07/29 Losartan Potassium 100 mg PO DAILY 07/30/15 Lenalidomide [Revlimid] 5 mg PO DAILY 12/22/15 Acyclovir 400 mg PO DAILY 03/28/16 Dexamethasone 20 mg PO WEEKLY 03/30/16 - Social History Travel Outside of [place] in the Last 3 Months?: No Smoking Status: Former smoker Social History: Denies: Alcohol Use, Substance Use Disorder - Family History Reports: No Significant History, Hypertension, Diabetes (DTR), Cancer (Multiple malignancies in family members including father and multiple sibs). Denies: Stroke, Cardiac Disorders - Review of Systems Constitutional: Chills, Fatigue, Loss of Appetite, Weakness - Respiratory Cough, Shortness of Breath, Wheezing - Gastrointestinal Gastrointestinal: Nausea, Vomiting - Physical Exam Constitutional: Alert, Well appearing. negative: Well nourished (She appears frail and somewhat chronically ill) Oriented to: Time, Person, Place Exam: Last Vital Signs Temp 97.7 F 03/30/16 11:56 Pulse 77 03/30/16 11:56 Resp 20 03/30/16 11:56 BP 135/66 03/30/16 11:56 Pulse Ox 97 03/30/16 11:56 Intake & Output 03/29/16 03/30/16 03/30/16 23:59 07:59 15:59 Intake Total 120 263 360 Output Total 500 Balance 120 -237 360 Patient's weight 115 lb 7 oz - HEENT Head: Normal (No neck vein distention bruit or thyromegaly) Eye: Normal (PERRL:EOMI) Oropharynx: Normal. negative: Exudate, Red, Tonsillar Hypertrophy Tympanic Membrane: Dull ENT EAC: Normal Nose: No Symptoms Reported. negative: Bleeding, Congestion, Discharge, Deformity - Respiratory/Cardiovascular Respiratory: Diminished, Rales (She is a few scattered rales at the bases right greater than left posterior), Wheezes Cardiovascular: Other (Distant regular no gallop no murmur). negative: Systolic murmur, Gallop/S3 - GI Auscultation: Normal Palpation: Normal (soft, nondistended, no palpable mass). negative: Enlarged liver, Enlarged spleen Tenderness: Non tender Rectal Exam: Deferred - Musculoskeletal Back: Normal Extremities: Radial Pulse (normal). negative: Calf Tenderness, Clubbing, Cyanosis, Edema, Femoral Pulse (Diminished), Pedal Edema, Pedal Pulse ( Diminished normal) - Integumentary Skin: Warm, Dry, Pale (Of her membranes and hands) Lymphatics: Normal - Neurologic Memory Impaired: Normal Cerebellar: Normal Mood Description: Normal Thought: Coherent Perception: Normal - Lab Results CT of chest:IMPRESSION: 1. No evidence of acute pulmonary embolism. 2. New mild cardiomegaly. New interlobular septal thickening throughout both lungs. New small layering right pleural effusion and increased small left pleural effusion. These findings are most suggestive of congestive heart failure. 3. New mild pericardial fluid/thickening. 4. Mild patchy ground-glass opacity and consolidation in the mid to lower left lung, significantly decreased since 12/23/2015, which is nonspecific and could represent atelectasis, with mild infection or aspiration not excluded. 5. New nonspecific subpleural focus of consolidation in the anterior left upper lobe, for which a follow-up chest CT is advised in 3 months. 6. Mild left hilar lymphadenopathy, nonspecific. This can also be reassessed on follow-up chest CT with IV contrast in 3 months. 7. Extensive coronary atherosclerosis. Laboratory Tests 03/28/16 03/30/16 03/30/16 17:40 04:25 04:25 WBC Hgb Plt Count Potassium 4.5 D Creatinine 1.40 H Estimated GFR (MDRD) 36 L Zsd-A-Moucxhbwklv Pept 7890 H 4780 H 03/30/16 04:25 WBC 2.1 L Hgb 9.1 L Plt Count 48 L* Potassium Creatinine Estimated GFR (MDRD) Aji-Z-Bidmkxskpar Pept Echocardiogram December 2015 shows mild LVH normal ejection fraction mild mitral and tricuspid regurgitation. Case Care Discussed with: Patient (Her problems include 1 heart failure acute diastolic in the setting of anemia and chemotherapy. She responded well to diuresis I would plan to transition to oral diuretic tomorrow. Echocardiogram is ordered to look for evidence of cardiac involvement amyloidosis or toxicity although it is uncommon myeloma and with her chemotherapy. She will need to sodium restrict compliance of medications and avoid hemoglobins of less than 9 with her diastolic heart failure. Her other problems include hypertension stable continue current treatment with ARB and CKD stable. I will leave further follow-up when she leaves the hospital to an as needed basis.)
[2016-03-30] MEDS: CYANOCOBALAMIN (Vitamin B-12) 500 MCG TABLET PO SCH (13:58)
[2016-03-30] MEDS: CALCIUM CARBONATE + VITAMIN D 500 MG TAB PO SCH (13:58)
[2016-03-30] MEDS: PROBIOTIC BLEND TAB PO SCH ×2 (13:59→17:59)
--- NOTE | 2016-03-30 17:13 | CAPUECHO ---
INDICATION: HEART FAILURE HEIGHT: 165.1 cm (5 ft 5.0 in) WEIGHT: 52.2 kg (115.0 lbs) BP: 101/54 BSA: 1.682093 m MEASUREMENTS 2D RVIDd: 3.1 cm LVOT Diam: 1.8 cm LA Diam: 3.1 cm EF Biplane: 65.29 % LAESV MOD A4C: 58.9 ml LAESV MOD A2C: 58.2 ml LAESV Index (A-L): 42.38 ml/m M-MODE IVSd: 1.1 cm LVIDd: 5.1 cm LVPWd: 1.2 cm LVIDs: 3.4 cm EF(Teich): 62 % Ao Diam: 2.9 cm LA Diam: 3.2 cm DOPPLER MV E Mando: 1.40 m/s MV A Mando: 1.59 m/s MV PHT: 71.67 ms MVA By PHT: 3.07 cm LVOT Vmax: 1.27 m/s AV Vmax: 1.23 m/s QUYEN Vmax, Pt: 2.70 cm TR Vmax: 3.18 m/s TR maxP mmHg RVSP: 55.92 mmHg FINDINGS ------- Procedure:2D images, m-mode, color and spectral Doppler were obtained and reviewed. ECG rhythm:Sinus rhythm. Study quality:This was a technically adequate study. Left Ventricle:The left ventricular size is normal. There is borderline concentric left ventricula r hypertrophy. There is normal global left ventricular contractility. Overall left ventricular s ystolic function is normal with, an EF between 60 - 65 %. The diastolic filling pattern indicates impaired relaxation. No regional wall motion abnormalities were noted. Right Ventricle:The right ventricle is normal in size and function. Left Atrium:The left atrium is normal in size. Right Atrium:The right atrium is normal in size and function. Aortic Valve:There is mild aortic valve sclerosis. There is mild aortic regurgitation. The aorti c pressure half-time by doppler is 460ms. There is no evidence of aortic stenosis. Mitral Valve:Normal appearing mitral valve. Mild mitral annular calcification present. Mild vikki ral regurgitation is present. Tricuspid Valve:The tricuspid valve appears structurally normal. Zhai-cw-glyryemy tricuspid regurg itation present. There is mild to moderate pulmonary hypertension. The right ventricular systoli c pressure, as measured by Doppler, is 56mmHg. Pulmonic Valve:The pulmonic valve is normal. There is no pulmonic regurgitation present. Aorta:The aortic root, ascending aorta and aortic arch appear normal. IVC:Normal inferior vena cava with normal inspiratory collapse. Pulmonary Veins:The flow patterns, measured by Doppler, appear normal. Pericardium:There is a small, generalized pericardial effusion present. CONCLUSIONS 1. There is borderline concentric left ventricular hypertrophy. 2. There is normal global left ventricular contractility. 3. Overall left ventricular systolic function is normal with, an EF between 60 - 65 %. 4. There is mild aortic regurgitation. 5. Mild mitral regurgitation is present. 6. Ljgh-su-qryltzkb tricuspid regurgitation present. 7. There is mild to moderate pulmonary hypertension. 8. There is a small, generalized pericardial effusion present. Electronically Signed By: Jerry Huntley MD, [facility] Electronically Signed On: 17:12:19
--- NOTE | 2016-03-30 17:48 | GENMEDPROG ---
Currently: Reports: HOROWITZ, AMANDA DVT Prophylaxis: Yes - Physical Examination Vital Signs and I&O: Last Vital Signs Temp 97.5 F 03/30/16 14:58 Pulse 79 03/30/16 14:58 Resp 20 03/30/16 14:58 BP 101/54 L 03/30/16 14:58 Pulse Ox 96 03/30/16 14:58 Oxygen Pulse Oxygen Saturation 96 O2 Device Nasal Cannula Oxygen Flow Rate 1 Fraction of Inspired Oxygen ( FIO2) Intake & Output 03/27/16 03/28/16 03/29/16 03/30/16 23:59 23:59 23:59 23:59 Intake Total 100 1177 1103 Output Total 3475 500 Balance 100 -2296 603 Patient's weight 51.71 kg 51.88 kg 52.362 kg Lymphatics: Normal Respiratory: Diminished, Rales (She is a few scattered rales at the bases right greater than left posterior), Wheezes Lab/DI/Studies Reviewed: Microbiology 03/28/16 18:30 Urine - Clean Catch - Midstream Urine Culture - Preliminary Unidentified Organism Abnormal Lab Results 03/30/16 03/30/16 03/30/16 04:25 04:25 04:25 WBC 2.1 L RBC 2.87 L Hgb 9.1 L Hct 26.6 L RDW 21.9 H Plt Count 48 L* Lymphocytes % (Manual) 14 L Absolute Neutrophils 1.49 L Absolute Lymphocytes 0.29 L BUN 24 H Creatinine 1.40 H Estimated GFR (MDRD) 36 L Glucose 122 H Calcium 8.0 L Hds-H-Ooplbujzezi Pept 4780 H PORTABLE CHEST 1 VIEW COMPARISON: 03/28/2016 . FINDINGS: Mediastinum and hilar structures normal. Heart size normal. Stable mild cardiomegaly. Mild pulmonary vascular prominence. Multifocal bilateral pulmonary infiltrates consistent with multifocal pulmonary edema and/or bilateral pneumonia. Small bilateral pleural effusions. Findings progressed from prior exam. No pneumothorax . IMPRESSION: Stable cardiomegaly with mild pulmonary vascular prominence. Multifocal bilateral pulmonary infiltrates consistent with multifocal pulmonary edema and/or pneumonia. Small bilateral pleural effusions. Findings progressed from prior study. Electronically Signed By: Cyril Knox On: 03/30/2016 08:21 Echocardiogram: CONCLUSIONS 1. There is borderline concentric left ventricular hypertrophy. 2. There is normal global left ventricular contractility. 3. Overall left ventricular systolic function is normal with, an EF between 60 - 65 %. 4. There is mild aortic regurgitation. 5. Mild mitral regurgitation is present. 6. Xjdk-vw-hpnlnvqt tricuspid regurgitation present. 7. There is mild to moderate pulmonary hypertension. 8. There is a small, generalized pericardial effusion present. Electronically Signed By: Jerry Huntley MD, [facility] Electronically Signed On: 17:12:19 - Assessment (1) Diastolic CHF, acute Acute I50.31 - ACUTE DIASTOLIC (CONGESTIVE) HEART FAILURE Comment/Plan: Responding to therapy fairly well. Echocardiogram is pending. Cardiology consult pending results of echocardiogram. (2) Hypoxemia requiring supplemental oxygen Acute R09.02 - HYPOXEMIA; Z99.81 - DEPENDENCE ON SUPPLEMENTAL OXYGEN Comment /Plan: Provide supplemental oxygen, maintain O2 sat of 92% or more. Patient has significant atelectasis and small bilateral pleural effusions. Continue present care recheck chest x-ray in a.m.. (3) Acute kidney injury Acute N17.9 - ACUTE KIDNEY FAILURE, UNSPECIFIED (4) UTI (urinary tract infection) Acute N39.0 - URINARY TRACT INFECTION, SITE NOT SPECIFIED Qualifiers: Qualified Code(s): N30.00 - Acute cystitis without hematuria Comment/Plan: Urine cultured, will begin IV antibiotic and await results. (5) Anemia of chronic disease Chronic D63.8 - ANEMIA IN OTHER CHRONIC DISEASES CLASSIFIED ELSEWHERE Comment/Plan: Monitor H/H and transfuse if needed/indicated. (6) Pancytopenia Chronic D61.818 - OTHER PANCYTOPENIA Comment/Plan: monitor blood counts for potential problems with anemia, bleeding diathesis. (7) Multiple myeloma Chronic C90.00 - MULTIPLE MYELOMA NOT HAVING ACHIEVED REMISSION Qualifiers: Qualified Code(s): C90.00 - Multiple myeloma not having achieved remission Comment/Plan: Followed by Dr. Paz
[2016-03-30] MEDS: TEMAZEPAM 15 MG CAP PO PRN (20:11)
[2016-03-30] MEDS: PRAVASTATIN 20 MG TAB PO SCH (20:11)
[2016-03-30] MEDS: ACETAMINOPHEN 325 MG/TAB TABLET PO PRN (20:11)
[2016-03-30] MEDS: CEFTRIAXONE 1 GM in D5W 100 ML IV SCH (20:12)
[2016-03-31] MEDS: NITROGLYCERINE 2 % OINTMENT PACK TOP SCH ×2 (01:08→05:22)
[2016-03-31] MEDS: POTASSIUM CHLORIDE 20 MEQ TAB PO SCH ×3 (05:19→17:52)
[2016-03-31] MEDS: MAGNESIUM OXIDE 400 MG TAB PO SCH ×3 (05:21→17:52)
[2016-03-31] MEDS: FUROSEMIDE 40 MG/4 ML VIAL IV SCH (05:22)
--- NOTE | 2016-03-31 07:53 | PCM.CARD ---
- Subjective Reason for visit: For heart failure Current Assessment: No New Symptoms (She says she has completely recovered no longer short of breath off oxygen.). negative: Chest Pain, Dizzines, Nausea, Orthopnea, Palpitations, Shortness of Breath, Vomiting Vital Signs: Last Vital Signs Temp 97.8 F 03/31/16 04:00 Pulse 72 03/31/16 07:11 Resp 20 03/31/16 04:00 BP 119/58 L 03/31/16 04:00 Pulse Ox 93 03/31/16 04:00 Vital Signs Temp 97.8 F 03/31/16 04:00 Pulse 72 03/31/16 07:11 Resp 20 03/31/16 04:00 BP 119/58 L 03/31/16 04:00 Pulse Ox 93 03/31/16 04:00 Intake & Output 03/29/16 03/30/16 03/31/16 23:59 23:59 23:59 Intake Total 1177 1302 203 Output Total 3475 800 600 Balance -2298 502 -397 Patient's weight 114 lb 6 oz 115 lb 7 oz 111 lb 6 oz Intake: IV Fluids 137 462 203 Right Antecubital 137 462 203 Oral 1040 840 Output: Urine 3475 800 600 Other: Elimination Method Indwelling Catheter Bedside Commode Bedside Commode Number of Unmeasured 1 Voids Urine Color Yellow Pale Yellow Yellow Stool Size Moderate Small Stool Description Formed Formed Brown Brown Estimated Emesis Amount ( 10 ml ml) Emesis Color Brown Wt Change in KG 0.170 kg gained 0.482 kg gained 1.843 kg loss Weight Change from 6 oz gained 1 lb(s) gained 4 lb(s) loss Previous Weight Weight (Calculated 51.880 52.362 50.519 Kilograms) Selected Entries 03/30/16 03/31/16 04:00 04:00 Patient's 115 lb 7 oz 111 lb 6 oz weight Respiratory: Diminished. negative: Rales, Wheezes Jugular Vein Distention: None Pulse Rhythm: Regular EKG Rhythm: Sinus Rhythm EKG Ectopy: negative: Runs >10 beats Heart Sounds: S1 & S2, Distant. 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 She has mild clinically insignificant valvular regurgitation due to age. The time of her echocardiogram left ventricular diastolic pressures appear to have normalized Laboratory Tests 03/28/16 03/30/16 03/30/16 17:40 04:25 04:25 Hgb Plt Count Potassium 4.5 D Creatinine 1.40 H Estimated GFR (MDRD) 36 L Cfe-A-Dnhzhwvcpwe Pept 7890 H 4780 H 03/30/16 04:25 Hgb 9.1 L Plt Count 48 L* Potassium Creatinine Estimated GFR (MDRD) Tez-G-Zcpmxofobjt Pept - Plan Her congestive heart failure is compensated diastolic and I think precipitated by the stress of anemia. She will need to continue on loop diuretic Lasix 40 mg daily sodium restrict weigh daily. I will leave further follow-up with me at to p.r.n. basis and she is being seen by her primary care physician oncologist frequently. I would advise keeping her hemoglobin greater than 9 with her tendency towards hospitalization for heart failure. Her other problems of CKD and hypertension are stable continue current treatment. Her healthcare literacy and ability to care for self is high I think that she will do well as an outpatient.
[2016-03-31] MEDS: LOSARTAN POTASSIUM 50 MG TAB PO SCH (07:56)
[2016-03-31] MEDS: CARVEDILOL 3.125 MG TAB PO SCH ×2 (07:56→19:53)
[2016-03-31] MEDS: LISINOPRIL 2.5 MG TAB PO SCH (07:57)
[2016-03-31] MEDS: ACYCLOVIR 200 MG CAP PO SCH (07:58)
[2016-03-31 09:13] LABS: MPV 9.3 fL (7.4-10.4)
[2016-03-31 09:31] LABS: BLOOD UREA NITROGEN 31 MG/DL (7-17); CALCIUM 8.9 MG/DL (8.4-10.2); CALCULATED OSMOLALITY 282 MOs/Kg (270-290); CHLORIDE 98 mEq/L (98-107); GLUCOSE 131 MG/DL (70-99); SODIUM LEVEL 142 mEq/L (137-146)
[2016-03-31 10:13] LABS: SEG NEUTROPHIL 69 % (45-76)
--- NOTE | 2016-03-31 11:52 | GENMEDPROG ---
Chief Complaint: Diastolic CHF, multiple myeloma Subjective Note: The patient is feeling somewhat better. She has been off oxygen since this morning. She has not really been out of bed. She denies chest pain or shortness of breath Current Medication List: Reviewed Currently: Reports: SOB (Improved). Denies: Cough, Wheezing, Fever/Chills, Ambulating (Has not ambulated yet) DVT Prophylaxis: Yes - Physical Examination Vital Signs and I&O: Last Vital Signs Temp 97.8 F 03/31/16 11:24 Pulse 81 03/31/16 11:24 Resp 18 03/31/16 11:24 BP 103/54 L 03/31/16 11:24 Pulse Ox 93 03/31/16 11:24 Oxygen Pulse Oxygen Saturation 93 O2 Device Room Air Oxygen Flow Rate 1 Fraction of Inspired Oxygen ( FIO2) Intake & Output 03/28/16 03/29/16 03/30/16 03/31/16 23:59 23:59 23:59 23:59 Intake Total 100 1177 1302 403 Output Total 3474 800 1200 Balance 100 229 502 797 Patient's weight 51.71 kg 51.88 kg 52.362 kg 50.519 kg General: Alert, Oriented x3, Cooperative HEENT: Normal Neck: Normal Trachea alignment, No Masses palpable Lymphatics: negative: Cervical Adenopathy Respiratory: Diminished (Decreased breath sounds at the bases). negative: Rales , Wheezes Cardiovascular: Regular rate and rhythm, Good Pedal Pulses. negative: LE Edema GI: Normal bowel sounds, Soft, Non tender Extremities/Musculoskeletal: Normal pulses. negative: Edema Skin: Warm,Dry and Intact Neurological: Normal speech Psych/Mental Status: Normal Affect Lab/DI/Studies Reviewed: Intake & Output 03/28/16 03/29/16 03/30/16 03/31/16 23:59 23:59 23:59 23:59 Intake Total 100 1177 1302 403 Output Total 3477 800 1200 Balance 100 2298 502 797 Patient's weight 51.71 kg 51.88 kg 52.362 kg 50.519 kg 03/31/16 08:07 03/31/16 08:07 ECHO-see full report CONCLUSIONS 1. There is borderline concentric left ventricular hypertrophy. 2. There is normal global left ventricular contractility. 3. Overall left ventricular systolic function is normal with, an EF between 60 - 65 %. 4. There is mild aortic regurgitation. 5. Mild mitral regurgitation is present. 6. Fgjn-sg-lkkqiqen tricuspid regurgitation present. 7. There is mild to moderate pulmonary hypertension. 8. There is a small, generalized pericardial effusion present. - Plan 1. Diastolic CHF echocardiogram is consistent with this. She has responded well to diuresis. 2. Hypoxemia resolved the patient is now off of oxygen but since she has just come off at this morning will observe 1 more day 3 3. Left upper lobe opacity on CT. Chest x-ray is also consistent with a possible pneumonia. Patient is only on Rocephin per my review of the chart and so I will start oral Zithromax as well. 4. Acute kidney injury this is slightly worse today. She has been on Cozaar and Zestril was added on admission. She is also on Lasix. I am going to stop her Zestril as she already is on Cozaar. Will follow labs. 5. UTI with Enterobacter. Sensitive to Rocephin will continue 6. Anemia of chronic disease follow CBC 7. Pancytopenia stable counts today 8. Multiple myeloma per Dr. Paz. Is on outpatient medication Note these were dictated and not put in the computer because the computer would not allow this. Case Care Discussed with: Patient, Nursing Staff Education/Counseling Given To: Patient Education/Counseling Given Regarding: Diagnosis, Treatment Total Time: 40 minutes Critical Care: No Couseling Time (>50% in counseling/coordination): No Code: 89810 (12+)
[2016-03-31] MEDS: LENALIDOMIDE 5 MG PO SCH (12:33)
[2016-03-31] MEDS: CALCIUM CARBONATE + VITAMIN D 500 MG TAB PO SCH (12:34)
[2016-03-31] MEDS: PROBIOTIC BLEND TAB PO SCH ×2 (12:34→17:52)
[2016-03-31] MEDS: CYANOCOBALAMIN (Vitamin B-12) 500 MCG TABLET PO SCH (12:35)
[2016-03-31] MEDS: CEFTRIAXONE 1 GM in D5W 100 ML IV SCH (19:53)
[2016-03-31] MEDS: PRAVASTATIN 20 MG TAB PO SCH (19:53)
[2016-03-31] MEDS: ACETAMINOPHEN 325 MG/TAB TABLET PO PRN (19:57)
[2016-03-31] MEDS: TEMAZEPAM 15 MG CAP PO PRN (19:57)
[2016-03-31] MEDS: AZITHROMYCIN 500 MG in D5W 250 ML IV SCH (21:38)
[2016-04-01] MEDS ORDERED: ASPIRIN (CHEWABLE) 81 MG TAB PO SCH (08:00)
[2016-04-01] MEDS: POTASSIUM CHLORIDE 20 MEQ TAB PO SCH (08:12)
[2016-04-01] MEDS: MAGNESIUM OXIDE 400 MG TAB PO SCH ×2 (08:12→11:32)
[2016-04-01] MEDS: CARVEDILOL 3.125 MG TAB PO SCH ×2 (08:13→21:10)
[2016-04-01] MEDS: LOSARTAN POTASSIUM 50 MG TAB PO SCH (08:13)
[2016-04-01] MEDS: ACYCLOVIR 200 MG CAP PO SCH (08:14)
[2016-04-01] MEDS ORDERED: FUROSEMIDE 40 MG TAB PO SCH (09:00)
[2016-04-01 09:16] LABS: BLOOD UREA NITROGEN 32 MG/DL (7-17); CALCIUM 9.2 MG/DL (8.4-10.2); CALCULATED OSMOLALITY 273 MOs/Kg (270-290); CHLORIDE 101 mEq/L (98-107); GLUCOSE 95 MG/DL (70-99); SODIUM LEVEL 138 mEq/L (137-146)
[2016-04-01 09:33] LABS: SEG NEUTROPHIL 66 % (45-76)
[2016-04-01] MEDS: LENALIDOMIDE 5 MG PO SCH (11:31)
[2016-04-01] MEDS: CYANOCOBALAMIN (Vitamin B-12) 500 MCG TABLET PO SCH (11:32)
[2016-04-01] MEDS: CALCIUM CARBONATE + VITAMIN D 500 MG TAB PO SCH (11:32)
[2016-04-01] MEDS: PROBIOTIC BLEND TAB PO SCH ×2 (11:32→18:00)
--- NOTE | 2016-04-01 11:47 | PCM.CARD ---
- Subjective Reason for visit: For heart failure in the setting of myeloma and anemia requiring transfusion Current Assessment: No New Symptoms. negative: Chest Pain, Nausea, Palpitations , Shortness of Breath, Vomiting Vital Signs: Last Vital Signs Temp 97.6 F 04/01/16 10:55 Pulse 85 04/01/16 10:55 Resp 18 04/01/16 10:55 BP 100/56 L 04/01/16 10:55 Pulse Ox 94 04/01/16 10:55 Selected Entries 03/28/16 03/28/16 03/29/16 17:23 23:00 04:25 Patient's 124 lb 4.8 oz 114 lb 114 lb 6 oz weight 03/29/16 03/30/16 03/31/16 12:07 04:00 04:00 Patient's 114 lb 6 oz 115 lb 7 oz 111 lb 6 oz weight 04/01/16 05:04 Patient's 108 lb 9.6 oz weight PE: She appears frail and chronically ill Respiratory: Diminished. negative: Rales Jugular Vein Distention: None Pulse Rhythm: Regular EKG Rhythm: Sinus Rhythm (She has no edema neck vein distention) Lab/DI Results Reviewed: Laboratory Tests 04/01/16 04/01/16 08:15 08:15 Hgb 9.8 L Potassium 6.0 H D BUN 32 H Creatinine 1.70 H - Plan Hyperkalemia today, she has CKD and I have stopped her ARB and she has diastolic heart failure precipitated by anemia and transfusion Heart failure is compensated on oral diuretics. Hypertension is stable she was stop on both her Keenan and Arb with hyperkalemia addressed by the hospitalist Anemia stable, with heart failure I would keep her hemoglobin greater than 9.
[2016-04-01 16:20] LABS: BLOOD UREA NITROGEN 34 MG/DL (7-17); CALCIUM 9.1 MG/DL (8.4-10.2); CALCULATED OSMOLALITY 271 MOs/Kg (270-290); CHLORIDE 98 mEq/L (98-107); GLUCOSE 113 MG/DL (70-99); SODIUM LEVEL 136 mEq/L (137-146)
[2016-04-01] MEDS ORDERED: SODIUM POLYSTYRENE SULFONATE 15 GM BOTTLE PO ONE ×2 (16:50→23:00)
--- NOTE | 2016-04-01 16:56 | GENMEDPROG ---
Subjective Note: Patient is feeling well. She is anxious to go home. Potassium has elevated today. She was still on her potassium and was getting an Keenan and ARB all of which have been discontinued today. She is still on her Lasix. Current Medication List: Reviewed Currently: Reports: SOB (Improved), Ambulating (Ambulating some in the room.). Denies: Cough, Wheezing, Fever/Chills DVT Prophylaxis: Yes (SCDs due to pancytopenia) - Physical Examination Vital Signs and I&O: Last Vital Signs Temp 98.1 F 04/01/16 16:17 Pulse 80 04/01/16 16:17 Resp 18 04/01/16 16:17 BP 110/52 L 04/01/16 16:17 Pulse Ox 92 04/01/16 16:17 Oxygen Pulse Oxygen Saturation 92 O2 Device Room Air Oxygen Flow Rate 1 Fraction of Inspired Oxygen ( FIO2) Intake & Output 03/29/16 03/30/16 03/31/16 04/01/16 23:59 23:59 23:59 23:59 Intake Total 1177 1302 843 802 Output Total 3475 800 1450 700 Balance -2298 502 -607 102 Patient's weight 51.88 kg 52.362 kg 50.519 kg 49.26 kg General: Alert, Oriented x3, Cooperative, No acute distress HEENT: negative: Anicteric Sclera Neck: Normal inspection Respiratory: Diminished. negative: Rales, Rhonchi Cardiovascular: Regular rate and rhythm. negative: LE Edema GI: Normal bowel sounds, Soft, Non tender Extremities/Musculoskeletal: Normal pulses. negative: Edema Skin: Warm,Dry and Intact Neurological: Normal speech Psych/Mental Status: Appropriate - Plan 1. Diastolic CHF -echocardiogram is consistent with this. She has responded well to diuresis. 2. Hypoxemia resolved the patient is now off of oxygen. 3 3. Left upper lobe opacity on CT. Chest x-ray is also consistent with a possible pneumonia. Is on Zithromax and Rocephin 4. Acute kidney injury this is slightly worse today. Zestril was stopped yesterday. Cozaar and potassium were stopped today. Fluid restriction was lifted. Will follow labs. 5 hyperkalemia-potassium was stopped as well as the Cozaar. The potassium is still going up so will give her a dose of Kayexalate. 5. UTI with Enterobacter. Sensitive to Rocephin will continue 6. Anemia of chronic disease follow CBC 7. Pancytopenia stable counts today 8. Multiple myeloma per Dr. Paz. Is on outpatient medication Note these were dictated and not put in the computer because the computer would not allow this. Case Care Discussed with: Patient, Consultants (Dr. Centeno), Family Education/Counseling Given To: Patient, Family Member Total Time: 45 minutes Critical Care: No Couseling Time (>50% in counseling/coordination): No Code: 03154 (12+)
[2016-04-01] MEDS: CEFTRIAXONE 1 GM in D5W 100 ML IV SCH (21:08)
[2016-04-01] MEDS: PRAVASTATIN 20 MG TAB PO SCH (21:11)
[2016-04-01] MEDS: ACETAMINOPHEN 325 MG/TAB TABLET PO PRN (21:14)
[2016-04-01 21:52] LABS: BLOOD UREA NITROGEN 35 MG/DL (7-17); CALCIUM 9.7 MG/DL (8.4-10.2); CALCULATED OSMOLALITY 276 MOs/Kg (270-290); CHLORIDE 98 mEq/L (98-107); GLUCOSE 130 MG/DL (70-99); SODIUM LEVEL 138 mEq/L (137-146)
[2016-04-01] MEDS: AZITHROMYCIN 500 MG in D5W 250 ML IV SCH (21:52)
[2016-04-02 04:20] LABS: BLOOD UREA NITROGEN 35 MG/DL (7-17); CALCULATED OSMOLALITY 269 MOs/Kg (270-290); CHLORIDE 98 mEq/L (98-107); GLUCOSE 88 MG/DL (70-99); SODIUM LEVEL 136 mEq/L (137-146)
[2016-04-02 07:36] VITALS: BP 143/69; PULSE 90; TEMP 98.1
--- NOTE | 2016-04-02 08:36 | PCM.DCS92 ---
Discharge Disposition: Home Discharge Condition: Stable Cognitive Discharge Status: Unimpaired Fuctional Discharge Status: Independent Physician Follow up/Referrals: Sahil Ibarra MD [Primary Care Provider] - One Week Home Medications / New Prescriptions: New Azithromycin [Zithromax] 500 mg PO DAILY #7 tablet Carvedilol [Coreg] 3.125 mg PO BID #60 tab Furosemide [Lasix] 40 mg PO DAILY #30 tablet Continue Pravastatin Sodium 10 mg PO DAILY Omeprazole [Prilosec] 20 mg PO DAILY Cyanocobalamin (Vitamin B-12) [Vitamin B-12] 1,000 mcg PO DAILY Aspirin (Enteric Coated) [Halfprin] 121.5 mg PO DAILY Ca/D3/Mag#11/Zinc/Dietary Assistant/Cipriano/Bor [Caltrate 600+D Plus Tablet] 2 tab PO DAILY Lenalidomide [Revlimid] 5 mg PO DAILY Acyclovir 400 mg PO DAILY Dexamethasone 20 mg PO WEEKLY Discontinued Losartan Potassium 100 mg PO DAILY O2 Device: Room Air Diet at Discharge: Low Salt Activity: As Tolerated Call Office For: Worsening Symptoms, Wound is Draining Pus - DC Summary Notes HPI/Notes: The patient is a 75-year-old white female with a history of stage to kappa light chain multiple myeloma who is followed by Dr. Paz. On the day of admission she presented to Dr. cruz those office complaining of increased shortness of breath tightness in her chest cough nausea and chest congestion. He sent her for evaluation in [place] emergency [place] [facility] evaluation there she was noted to have elevated blood pressure BNP was mildly elevated at 78 90 creatinine was mildly elevated at 1.2 potassium was low at 3.0. Room air blood gas showed a pH of 7.52 pCO2 of [address] of her chest showed some consolidation in the left lower lung suggestive of infection versus atelectasis. Her urinalysis was notable for white blood cells and positive leukocyte esterase. The patient was admitted to a medical bed with a diagnosis of pneumonia, diastolic CHF, hypoxemia, acute kidney injury, UTI, anemia of chronic disease and pancytopenia. Hospital Course Note:: Discharge summary on patient named LOLLY OJEDA admitted [place] [facility] 03/28/16 by Debra Mireles MD. Date of discharge is [04/02/2016 The patient was admitted to a telemetry bed. Cardiac enzymes were negative. Because of her CHF she she had an echocardiogram which showed borderline concentric LVH normal left ventricular contractility, ejection fraction between 60 and 65%, with [id number] pulmonary hypertension mild AR and mild MR Dr. Huntley saw the patient in consultation. She was started on Coreg. In addition to her Cozaar she was also given some Zestril. Initially her potassium fell, and was lower than 3. She was started on additional potassium orally. She was also started on magnesium supplementation. She was also started on Lasix. She responded well to teaching for CHF. She does understand to salt restrict. She does understand that she should weigh herself daily and report any increased weight. She was initially fluid restricted to 1200 cc/day Over the course of the patient's hospitalization she developed increasing renal failure. Her creatinine archana to 1.8. Her potassium ultimately archana and her Zestril was discontinued as well as her potassium supplementation. Because of her renal failure her losartan was discontinued as well. Her potassium got up as high as 6.5. She was given 1 dose of Kayexalate and on discharge it is 5.8. She never had any arrhythmias on the monitor. Her discharge creatinine is 1.7. On discharge the patient is going to continue with her Lasix but discontinue her losartan. Dr. Centeno saw the patient on 04/01/2016 and said that she would have Dr. Paz add a BMP to his blood work that he is planning to do on SaturdayApril 04. Patient had a her urine culture with grew out enterobacter which was sensitive to Rocephin. Patient had been on Rocephin since admission. Rocephin was discontinued after 5 IV doses. The patient was asymptomatic with the UTI. Patient's chest x-ray ultimately did show a persistent left-sided infiltrate. It was not classic for pneumonia but was concerning. The patient still had a mild cough. She was started on Zithromax and will finish a 7 day course of oral Zithromax as an outpatient. Condition on discharge is stable and improved. The patient is off oxygen. She is ambulating. she does understand salt restriction. She will follow up with Dr. Ibarra was planned as well as Dr. Paz. Dr. Huntley did not feel he needed to see the patient back. He did recommend keeping her hemoglobin greater than or equal to 9. Microbiology Discharge Home Medication List Omeprazole [Prilosec] 20 mg PO DAILY 09/02/13 [History Confirmed 03/28/16] Pravastatin Sodium 10 mg PO DAILY 09/02/13 [History Confirmed 03/28/16] Cyanocobalamin (Vitamin B-12) [Vitamin B-12] 1,000 mcg PO DAILY 06/09/15 [ History Confirmed 03/28/16] Aspirin (Enteric Coated) [Halfprin] 121.5 mg PO DAILY 07/30/15 [History Confirmed 03/28/16] Ca/D3/Mag#11/Zinc/Dietary Assistant/Cipriano/Bor [Caltrate 600+D Plus Tablet] 2 tab PO DAILY 07/29 [History Confirmed 03/28/16] Lenalidomide [Revlimid] 5 mg PO DAILY 12/22/15 [History Confirmed 03/28/16] Acyclovir 400 mg PO DAILY 03/28/16 [History Confirmed 03/28/16] Dexamethasone 20 mg PO WEEKLY 03/30/16 [History Confirmed 03/30/16] Azithromycin [Zithromax] 500 mg PO DAILY #7 tablet 04/02/16 [Rx] Carvedilol [Coreg] 3.125 mg PO BID #60 tab 04/02/16 [Rx] Furosemide [Lasix] 40 mg PO DAILY #30 tablet 04/02/16 [Rx] New Discharge Medications (Rx) Azithromycin [Zithromax] 500 mg PO DAILY #7 tablet 04/02/16 [Rx] Carvedilol [Coreg] 3.125 mg PO BID #60 tab 04/02/16 [Rx] Furosemide [Lasix] 40 mg PO DAILY #30 tablet 04/02/16 [Rx] Microbiology 03/28/16 18:30 Urine - Clean Catch - Midstream Urine Culture - Final Enterobacter Cloacae Complex ]. Discharge diagnoses 1. Bacterial pneumonia 2. Diastolic CHF 3. Acute kidney injury 4. Hyperkalemia after hypokalemia 5. UTI 6. Hypoxemia, resolved 7. Anemia of chronic disease 8. Pancytopenia and 9. Multiple myeloma. He did not have the ability to enter the diagnoses on the discharge summary. Total Time: 35 minutes Code: 99724 (>30min.) Heart Failure DC - Education Provide the following patient education: Yes Cardiac Prudent Diet (Restricted Salt Intake) - Discharge Medications Beta Shailesh Ordered: New Prescription on Chart Ejection Fraction (% or Description): 60% RICHARD/ARB Ordered (Patients with EF<40% use RICHARD INHIBITORS &/or ARBs): Contraindicated (See Below) ACEI/ARB Contraindications: Hyperkalemia - Physical Exam Vital Signs: Last Vital Signs Temp 98.1 F 04/02/16 07:35 Pulse 90 04/02/16 07:35 Resp 16 04/02/16 07:35 BP 143/69 04/02/16 07:35 Pulse Ox 93 04/02/16 07:35 Oxygen Pulse Oxygen Saturation 93 O2 Device Room Air Oxygen Flow Rate 1 Fraction of Inspired Oxygen ( FIO2) Constitutional: Alert, Well appearing (Thin but nontoxic-appearing). negative: Well nourished (She appears frail and somewhat chronically ill) Oriented to: Time, Person, Place - HEENT Head: Normal Eye: Normal. negative: Conjunctival Injection Oropharynx: Normal. negative: Exudate, Red, Tonsillar Hypertrophy ENT EAC: Normal Nose: No Symptoms Reported. negative: Bleeding, Congestion, Discharge, Deformity - Respiratory/Cardiovascular Respiratory: Diminished, Excursion (Decreased). negative: Rales, Rhonchi Cardiovascular: Normal - GI Auscultation: Normal Palpation: Normal. negative: Enlarged liver, Enlarged spleen Tenderness: Non tender Rectal Exam: Deferred - Musculoskeletal Back: Normal. negative: CVA Tenderness Extremities: Radial Pulse (normal). negative: Calf Tenderness, Clubbing, Cyanosis, Edema, Femoral Pulse (Diminished), Pedal Edema, Pedal Pulse ( Diminished normal) - Integumentary Skin: Warm, Dry Lymphatics: negative: Cervical Adenopathy - Neurologic Memory Impaired: Normal Motor Function: Normal Cerebellar: Normal Mood Description: Normal Thought: Coherent Perception: Normal
== END 2016-04-02 10:08 | disposition home or self-care (01) | DRG 291 ==
LOC: ED 16:59 → PCU 20:37
PROVIDERS: ADMIT Family Medicine; ATTEND Family Medicine
PROC: 039B3ZZ Drainage of Right Radial Artery, Percutaneous Approach (ICD-10-PCS; principal; 2016-03-28)
DX: I13.0 Hypertensive heart and chronic kidney disease with heart failure and stage 1 through stage 4 chronic kidney disease, or unspecified chronic kidney disease (principal); I50.31 Acute diastolic (congestive) heart failure; N17.9 Acute kidney failure, unspecified; J15.9 Unspecified bacterial pneumonia; D61.818 Other pancytopenia; C90.00 Multiple myeloma not having achieved remission; I27.2 Other secondary pulmonary hypertension; N30.00 Acute cystitis without hematuria; B96.89 Other specified bacterial agents as the cause of diseases classified elsewhere; Z87.891 Personal history of nicotine dependence; R09.02 Hypoxemia; D63.8 Anemia in other chronic diseases classified elsewhere; N18.9 Chronic kidney disease, unspecified; E87.5 Hyperkalemia; E87.6 Hypokalemia; Z79.82 Long term (current) use of aspirin; Z79.899 Other long term (current) drug therapy; Z90.2 Acquired absence of lung [part of]
CPT/HCPCS: 36415; 36600; 71010; 71020; 80048; 80053; 80061; 81001; 82040; 82550; 82803; 83605; 83690; 83735; 83880; 84484; 85007; 85014; 85018; 85025; 85027; 85610; 85730; 86850; 86900; 86901; 87040; 87077; 87086; 87186; 93005; 93306; 96365; 96372; 97161; 99231; 99284; G0237; J0456; J0696; J1650; J1940; J2405; J3475; J3480; J3490; J7060; J7070

== ENCOUNTER 2016-04-04 13:17 | Emergency (ER) | payer MEDICARE ==
[2016-04-04 13:33] VITALS: BMI 20.6
--- NOTE | 2016-04-04 15:14 | DIRPT ---
CLINICAL DATA: Shortness of breath, generalized weakness today, abnormal labs, history hypertension, CHF, COPD, lung cancer, kidney stones, former smoker EXAM: CHEST 2 VIEW COMPARISON: 03/30/2016 FINDINGS: Upper normal heart size. Extensive atherosclerotic calcification aorta. Mediastinal contours and pulmonary vascularity normal. Emphysematous and bronchitic changes consistent with COPD. Biapical scarring with minimal residual infiltrate in LEFT upper lobe. Atelectasis at LEFT base, with slightly improved LEFT lower lobe aeration since previous exam. Remaining lungs clear. No pleural effusion or pneumothorax. Bones demineralized. IMPRESSION: COPD changes with improved LEFT lower lobe aeration and minimal persistent infiltrate in the LEFT upper lobe. Electronically Signed By: Lazaro Oconnell M.D. On: 04/04/2016 15:12
[2016-04-04] MEDS ORDERED: NS 1,000 ML IV ONE (15:50)
--- NOTE | 2016-04-04 16:06 | EDPRACDOC ---
- General Information Information Source: Patient, Family Mode Of Arrival: Car - History of Present Illness Onset: TODAY HPI: PT PRESENTS FROM [facility] DUE TO AN ELEVATED CREATINE LEVEL. PT WAS RECENTLY ADMITTED TO THE HOSPITAL DUE TO SHOB AND LOWER LEG EDEMA. AFTER REVIEWING HER RECORDS IT IS NOTED THAT SHE WAS PLACED ON LASIX AND WAS TO STOP HER ARB. WHILE TALKING WITH THE PATIENT SHE STATES SHE HAS NOT STOPPED ANY OF HER MEDICATIONS WHILE AT HOME. STATES SHE CONTINUES TO HAVE SHOB AND LOWER LEG EDEMA. CREATINE UPON DISCHARGE WAS 1.2 TODAY IT WAS FOUND TO BE 3.4, PT WAS GIVEN 1 LITER OF FLUID IN THE [facility]ER CENTER AND IT CAME DOWN TO 3.O Symptoms Started: Reports: Gradually Symptoms Description: Constant Weakness: Bilateral: Generalized Symptoms: Reports: Weak Symptom Severity: Reports: Unable to performs ADL's Relevant History of: Denies: O, Anemia, CVA, DM, Electrolyte disorder, GI Bleed , NM, TIA Associated signs and symptoms:: Reports: None <Germania Zaragoza - Last Filed: 04/04/16 17:05> <Des Henderson - Last Filed: 04/04/16 17:56> - General Information Chief Complaint: Generalized Weakness Stated Complaint: CREATINE OVER 3.4 [facility]ENT FROM [facility] Time Seen by Provider: 04/04/16 14:26 Home Medications: Home Medications Omeprazole [Prilosec] 20 mg PO DAILY 09/02/13 Pravastatin Sodium 10 mg PO DAILY 09/02/13 Cyanocobalamin (Vitamin B-12) [Vitamin B-12] 1,000 mcg PO DAILY 06/09/15 Aspirin (Enteric Coated) [Halfprin] 121.5 mg PO DAILY 07/30/15 Ca/D3/Mag#11/Zinc/Technical Internship/Cipriano/Bor [Caltrate 600+D Plus Tablet] 2 tab PO DAILY 07/29 Lenalidomide [Revlimid] 5 mg PO DAILY 12/22/15 Acyclovir 400 mg PO DAILY 03/28/16 Dexamethasone 20 mg PO TH 03/30/16 Azithromycin [Zithromax] 500 mg PO DAILY #7 tablet 04/02/16 Carvedilol [Coreg] 3.125 mg PO BID #60 tab 04/02/16 Losartan Potassium [Cozaar] 100 mg PO DAILY 04/04/16 Allergies/Adverse Reactions: Allergies Allergy/AdvReac Type Severity Reaction Status Date / Time NSAIDS (Non-Steroidal AdvReac Severe See Verified 04/04/16 13:33 Anti-Inflamma Comments ED Past Medical History - History Reviewed Yes Nurses notes reviewed and agree except as marked - Patient Medical History Cardiac History: Reports: Coronary Artery Disease, Hypertension, Congestive Heart Failure, Hypercholesterolemia, Valvular Heart Disease Respiratory History: Reports: COPD, Emphysema. Denies: Pneumonia GI/ History: Reports: Renal Disease (HAS MULTIPLE MYELOMA WHICH CAN CAUSE THIS ), Kidney Stones, Gastroesophageal Reflux. Denies: Urinary Tract Infection Musculoskeletal History: Reports: Arthritis (osteoporosis), Rheumatoid Arthritis Psychological History: Reports: Anxiety. Denies: Depression, Substance Use Disorder Systemic History: Reports: Cancer (multiple myeloma, lung ca(resected), L breast , skin ca), Anemia Surgical History: Reports: Other (L lower lobectomy, R leg surgery(rut inserted) , lithotripsy,L Breast lump) Date of Last Radiation Treatment: 10 YEARS Date of Last Chemotherapy Date: 02/28/16 - Family Medical History Reports: Hypertension, Diabetes (DTR), Cancer (Multiple malignancies in family members including father and multiple sibs). Denies: Stroke, Cardiac Disorders - Social Medical History Smoking Status: Former smoker Social History: Denies: Substance Use Disorder <Germania Zaragoza - Last Filed: 04/04/16 17:05> EDM Review of Systems - Review of Systems ROS Negative Except as Marked: Yes All systems reviewed and were negative except as marked <Germania Zaragoza - Last Filed: 04/04/16 17:05> - Physical Exam Constitutional: Alert (Awake), No apparent distress Oriented to: Time, Person, Place Last recorded Vital Signs: Last Vital Signs Temp Pulse 66 04/04/16 15:15 Resp 20 04/04/16 15:15 BP 131/60 04/04/16 15:15 Pulse Ox 96 04/04/16 15:15 Oxygen Pulse Oxygen Saturation 96 O2 Device Room Air Oxygen Flow Rate Fraction of Inspired Oxygen ( FIO2) - HEENT Head: Normal ( normocephalic) Eye Exam: Normal (PERRL, EOMI, Sclera white) Oropharynx: Normal (Pharynx:Moist without exudate,Gums-no swelling) Tympanic Membrane: Normal Nose: No Symptoms Reported (septum midline) Neck: Normal (FROM, trachea at midline) - Respiratory/Cardiovascular Respiratory: Normal - CTA (BBS clear to auscultation without adventitious sounds ) Cardiovascular: Normal (RRR without murmur, gallop or rub) - GI Auscultation: Normal (NABS) Palpation: Normal (Soft,No rebound or guarding, non distended) Tenderness: Non tender Chang's Sign: Negative Rectal Exam: Deferred - Musculoskeletal Back: Normal (Non-Tender) Extremities: Normal (Normal tone, Pulses 2+ No cyanosis or edema, FROM), Pedal Edema (1+ PITTING) - Integumentary Skin: Normal, Warm, Dry Lymphatics: Normal (no adenopathy) - Neurologic Memory Impaired: Normal Motor Function: Normal (Normal tone, Pulses 2+ No cyanosis or edema, FROM) Cranial Nerve: Normal (CN II-X11 intact sensation, strength 5/5) Cerebellar: Normal Mood Description: Normal Perception: Normal <Germania Zaragoza - Last Filed: 04/04/16 17:05> - Physical Exam Last recorded Vital Signs: Last Vital Signs Temp Pulse 72 04/04/16 16:40 Resp 18 04/04/16 16:40 BP 147/65 04/04/16 16:40 Pulse Ox 97 04/04/16 16:40 Oxygen Pulse Oxygen Saturation 97 O2 Device Room Air Oxygen Flow Rate Fraction of Inspired Oxygen ( FIO2) <Des Henderson - Last Filed: 04/04/16 17:56> NIH Stroke Scale Initial Evaluation Level of Consciousness: Alert LOC- Question: Answers Both Correctly LOC Commands: Both Task Correctly Best Gaze: Normal Visual: No Visual Loss Facial Palsy: Normal Movement Motor Arm LEFT: No Drift Motor Arm RIGHT: No Drift Motor Leg LEFT: No Drift Motor Leg RIGHT: No Drift Limb Ataxia: Absent Sensory: Normal Best Language: No Aphasia Dysarthria: Normal Extinction and Inattention: No Abnormality (Neglect) Score: 0out of42 <Germania Zaragoza - Last Filed: 04/04/16 17:05> - Neurologic Orientation: Time, Person, Place Speech: Fluent, Clear Coginitive: Normal, Follows Commands Affect: Normal, Calm Thought: Coherent Perception: Normal <Germania Zaragoza - Last Filed: 04/04/16 17:05> - Differential Diagnosis Dehydration - Results [id number] Pept 1390 pg/mL (0-1800) 04/04/16 15:20 Lab Results 04/04/16 15:20 Pcg-U-[id number] Pept 1390 - EKG EKG #1 EKG Time: 14:07 -: Yes EKG interpreted by me Rate: bpm: 73 [place]: RAD Rhythm: NSR Block: None Hypertrophy: None ST: Normal <Germania Zaragoza - Last Filed: 04/04/16 17:05> - Results [id number]-F-[id number] Pept 1390 pg/mL (0-1800) 04/04/16 15:20 Lab Results 04/04/16 15:20 Vmy-U-Dcxegbuveqb Pept 1390 - Additional Information D/W DR ENG. RECOMMENDED HOME, F/U SATURDAY FOR RECHECK LABS. STOP ARB (PT DIDN'T D/C WHEN SHE GOT HOME), HOLD DIARRHETIC FOR SEVERAL DAYS. <Des Henderson - Last Filed: 04/04/16 17:56> Decision Time to Discharge: 17:06 - Departure Disposition: Home Education/Counseling Given To: Patient Education/Counseling Given Regarding: Diagnosis, Treatment, Prognosis, Follow Up <Germania Zaragoza - Last Filed: 04/04/16 17:05> - Departure Yes I personally saw and evaluated the patient. <Des Henderson - Last Filed: 04/04/16 17:56> - Departure Condition: Stable Final Diagnosis: Dehydration Instructions: Dehydration (ED), Weakness (General) Referrals: Sahil Ibarra MD [Primary Care Provider] - One Week Additional Instructions: STOP TAKING THE FUROSEMIDE AND LOSARTAN. INCREASE FLUID INTAKE. FOLLOW UP WITH THE [facility]ER CENTER NEXT WEEK FOR LAB REDRAW. RETURN TO THE ED FOR WORSENING SYMPTOMS OR CONCERNS
[2016-04-04 17:11] VITALS: BP 147/65; PULSE 72
== END 2016-04-04 17:20 | disposition home or self-care (01) ==
LOC: ED 13:17
DX: E86.0 Dehydration (principal)
CPT/HCPCS: 36415; 71020; 83880; 93005; 96360; 99284